=== PATIENT | female | born 1965 | race Caucasian/White ===

== ENCOUNTER → 2017-03-01 | Outpatient (CLI) | payer BC ==
[~2017-03-01] MED LIST: ASPIRIN ADULT L81 M2 PO; COREG 3.125M3.125 MG PO; FLOMAX 0.4MG C0.4 MG PO; HYDROCODONE1 TABLET PO; LIPITOR20 MG PO; PLAVIX 75MG TAB75 MG PO
--- NOTE | 2017-03-02 06:26 | RADIOLOGY REPORT PS360 ---
CT ABD W/ CONTRAST CLINICAL INDICATION: Abdominal bulge, abdominal pressure, history of umbilical hernia ABD PRESSURE ORDERING PHYSICIAN: Kam Kamara MD PATIENT AGE: 51 years COMPARISON: 07/13/2014 TECHNIQUE: Axial images are obtained of the upper abdomen following the intravenous administration of 75 mL's of Isovue-370. Oral contrast with Redicat also utilized. FINDINGS: The lung bases are clear. There has been a prior cholecystectomy. No biliary dilatation. The liver, spleen, pancreas, and right adrenal gland are unremarkable. There is an 18 x 12 mm oval lesion involving the left adrenal gland. This is similar in size compared to the previous exam. There are multiple bilateral renal calculi. These have increased in size compared to the previous exam. Stones within the upper pole on the right measures up to 9 mm. Stones fill the lower pole calyx on the right as well measuring up to 2 cm in length and 0.9 similar is in width suggesting development of a staghorn calculus in the lower pole. Multiple stones are present on the left measuring up to 4 mm. No hydronephrosis. No ureteral calculi evident within the proximal to mid ureters. The pelvis was not included on this exam. There is a small umbilical hernia which contains fat. No evidence of incarcerated bowel within the hernia. There is diverticulosis of the descending colon IMPRESSION: 1. Multiple bilateral renal calculi more extensive compared to the previous exam and more extensive on the right than the left with suggestion of developing staghorn calculus in the lower pole on the right 2. Small umbilical hernia containing fat 3. Stable left adrenal nodule
== END ==
LOC: RAD 02-26 09:45
DX: R10.9 Unspecified abdominal pain (principal)
CPT/HCPCS: Q9967